=== PATIENT | male | born 1965 | race African-American/Black ===

== ENCOUNTER 2024-05-09 20:58 | Emergency (ER) | payer SELFPAY ==
[~2024-05-09] VITALS: Ht 182.9 cm; Wt 95.5 kg
[~2024-05-09 20:58] MED LIST: NO MEDS
[2024-05-09 20:59] VITALS: BP 150/80; TEMP 98
[2024-05-09 23:46] LABS: BASOPHILS % (AUTO) 0.3 % (0.0-2.0); EOSINOPHILS % (AUTO) 0.7 % (1.0-6.0); HEMATOCRIT 38.6 % (41-53); HEMOGLOBIN 12.9 g/dL (13.5-17.5); LYMPHOCYTES # (AUTO) 1.2 K/uL (1.0-4.8); LYMPHOCYTES % (AUTO) 15.4 % (22.0-44.0); MEAN CORPUSCULAR HEMOGLOBIN 31.5 pg (26.0-34.0); MEAN CORPUSCULAR HGB CONC 33.5 G/dL (31.0-37.0); MEAN CORPUSCULAR VOLUME 94 fL (80-100); MONOCYTES # (AUTO) 0.5 K/uL (0.1-1.0); MONOCYTES % (AUTO) 5.7 % (2.0-9.0); NEUTROPHILS # (AUTO) 6.3 K/uL (1.8-7.7); NEUTROPHILS % (AUTO) 77.9 % (40.0-70.0); PLATELET COUNT (AUTO) 356 K/uL (150-450); RED BLOOD CELL COUNT(AUTO) 4.11 MIL/uL (4.50-5.90); WHITE BLOOD COUNT (AUTO) 8.1 K/uL (4.5-11.0)
[2024-05-10 00:06] LABS: ANION GAP 7 mmol/L (8-16); CALCIUM, TOTAL 8.7 mg/dL (8.8-10.5); CARBON DIOXIDE 30 mmol/L (22-29); CHLORIDE 100 mmol/L (98-107); CREATININE 1.36 mg/dL (0.60-1.30); GLOMERULAR FILTR. RATE CALC > 60 mL/min (>60); GLUCOSE,RANDOM 203 mg/dL (70-110); POTASSIUM 4.2 mmol/L (3.5-5.1); SODIUM SERUM 137 mmol/L (136-145); UREA NITROGEN, BLOOD 11 mg/dL (7-18)
[2024-05-10 00:14] LABS: ALANINE AMINOTRANSFERASE 34 U/L (12-78); ALBUMIN 3.4 g/dL (3.4-5.0); ALKALINE PHOSPHATASE 96 U/L (46-116); ASPARTATE AMINOTRANSFERASE 29 U/L (15-37); BILIRUBIN,TOTAL 0.5 mg/dL (0.1-1.0)
[2024-05-10 00:15] LABS: TROPONIN I-HIGH SENSITIVITY 9 ng/L (<76)
[2024-05-10 00:25] LABS: B-TYPE NATRIURETIC PEPTIDE < 5 pg/mL (0-100)
[2024-05-10 00:30] LABS: COVID AG,FIA SOURCE NASAL SWAB
[2024-05-10 00:50] LABS: SARS-COV2 (COVID) ANTIGEN,FIA Negative (Negative)
[2024-05-10 00:52] LABS: INFLUENZA TYPE A NEGATIVE FOR TYPE A (NEGATIVE); INFLUENZA TYPE B NEGATIVE FOR TYPE B (NEGATIVE)
[2024-05-10] MEDS: CefTRIAXone 1 GM/DEXTROSE 50 ML IV ONE (03:01)
[2024-05-10] MEDS: SODIUM CHLORIDE 0.9% 1,000 ML IV ONE (03:01)
[2024-05-10] MEDS: AZITHROMYCIN 500 MG/NS 250 ML IV ONE (03:02)
[2024-05-10] MEDS ORDERED: CEPH-558 PO (03:11)
[2024-05-10] MEDS ORDERED: AZIT-167 PO (03:11)
[2024-05-10 05:30] VITALS: PULSE 90; RESP 18; O2SAT 96
== END 2024-05-10 05:32 | disposition home or self-care (01) ==
LOC: EMS 20:58
DX: J18.9 Pneumonia, unspecified organism (principal); F15.10 Other stimulant abuse, uncomplicated; E11.9 Type 2 diabetes mellitus without complications; I10 Essential (primary) hypertension; J45.909 Unspecified asthma, uncomplicated; Z20.822 Contact with and (suspected) exposure to COVID-19
CPT/HCPCS: 99285; 87426; 80053; 82962; 83880; 84484; 85025; 87040; 87804; 36415; 93005; 96365; 71045; 96368; J0456; J0696; J7030

== ENCOUNTER 2024-06-21 23:02 | Emergency (ER) | payer MEDICAID ==
[~2024-06-21] VITALS: Ht 182.9 cm; Wt 95.5 kg
[~2024-06-21 23:02] MED LIST changes: +AZIT-167 PO; +CEPH-558 PO
[2024-06-21 23:33] VITALS: BP 139/80; PULSE 81; RESP 20; TEMP 98.1; O2SAT 97
[2024-06-21 23:58] LABS: APPEARANCE,URINE CLEAR (CLEAR); BILIRUBIN,URINE NEGATIVE (NEGATIVE); COLOR,URINE LIGHT YELLOW (YELLOW); GLUCOSE, URINE (UA) >=1000 mg/dL (NEGATIVE); KETONES,URINE NEGATIVE (NEGATIVE); LEUKOCYTE ESTERASE ,URINE NEGATIVE (NEGATIVE); NITRATE,URINE NEGATIVE (NEGATIVE); OCCULT BLOOD,URINE NEGATIVE (NEGATIVE); PROTEIN,URINE NEGATIVE (NEGATIVE); SPECIFIC GRAVITIY, URINE 1.012 (1.003-1.030); UROBILINOGEN,URINE <=1.0 mg/dL (<=1.0)
[2024-06-22 00:26] LABS: BACTERIA,URINE Rare /HPF (None Seen); RBC,URINE 0-2 /HPF (0-2); WBC,URINE 0-2 /HPF (0-5)
[2024-06-22] MEDS ORDERED: TAMS0.4C94 PO (03:12)
[2024-06-22] MEDS: TAMSULOSIN HCL 0.4 MG CAPSULE PO ONE (03:13)
== END 2024-06-22 03:46 | disposition home or self-care (01) ==
LOC: EMS 23:03
DX: R30.0 Dysuria (principal); Z76.0 Encounter for issue of repeat prescription; J45.909 Unspecified asthma, uncomplicated; E11.9 Type 2 diabetes mellitus without complications; I10 Essential (primary) hypertension
CPT/HCPCS: 81001; 82962; 99283